=== PATIENT | female | born 1955 | race Two or more races ===

== ENCOUNTER 2022-02-22 19:54 | Emergency (ER) | payer MEDICARE, OTHER ==
[~2022-02-22] VITALS: Ht 170.2 cm; Wt 108.9 kg
[2022-02-22] MEDS ORDERED: KETOROLAC TROMETH 30 MG/ML 1ML VIAL IV ONE (20:45)
[2022-02-22] MEDS ORDERED: DEXTROSE 10% 1,000 ML IV SCH (20:45)
[2022-02-22] MEDS ORDERED: MORPHINE SULFATE 4 MG/ML SYR/VIAL IV ONE (21:30)
[2022-02-23] MEDS ORDERED: BACL10TA PO (01:08)
[2022-02-23 02:41] VITALS: BP 164/78
== END 2022-02-23 05:53 | disposition home or self-care (01) ==
LOC: ER 19:54 → EDBD 19:54 → ER 02-23 03:14
DX: M54.16 Radiculopathy, lumbar region (principal); E11.9 Type 2 diabetes mellitus without complications; M25.551 Pain in right hip; Z88.6 Allergy status to analgesic agent; W01.0XXA Fall on same level from slipping, tripping and stumbling without subsequent striking against object, initial encounter; Y93.89 Activity, other specified; Y92.89 Other specified places as the place of occurrence of the external cause; Y99.8 Other external cause status
CPT/HCPCS: 36415; 72131; 72192; 80320; 96374; 99284; J1885; J2270